=== PATIENT | female | born 1980 ===

== ENCOUNTER → 2019-06-14 | Outpatient (CLI) | payer SELFPAY | END | disposition home or self-care (01) | LOC: LABWHC1 13:16 | PROVIDERS: ATTEND Internal Medicine Endocrinology, Diabetes & Metabolism | DX: Z33.1 Pregnant state, incidental (principal) | CPT/HCPCS: 81025 ==

== ENCOUNTER 2020-03-25 10:00 | Emergency (ER) | payer OTHER ==
[2020-03-25 10:06] VITALS: RESP 18; TEMP 98.2
[2020-03-25] MEDS ORDERED: SODIUM CHLORIDE 0.9% 1,000 ML IV ONE (10:43)
--- NOTE | 2020-03-25 10:53 | ED ---
Female Urogenital HPI - General Chief complaint: Urogenital Stated complaint: abd pain/11 wks preg Time Seen by Provider: 03/25/20 10:23 Source: patient, family, RN notes reviewed, old records reviewed, Caregiver Mode of arrival: ambulatory Limitations: no limitations - History of Present Illness Initial comments: Patient is a 39-year-old female who presents emergency department today with chief complaint of acute urinary retention starting last night. She states that she is approximately 11 weeks and this would be her second and one previous miscarriage last year. 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 She reports that starting yesterday she felt that she was only able to urinate a few drops of urine. She denies any specific back pain or falls or trauma to her spine. She reports that she's been having normal stool. Patient denies any vaginal bleeding or discharge. She states that she has no numbness or tingling sensation to her legs. She complained of significant distention of her lower abdomen when she arrived. An ultrasound was completed and she had over 1 L of urine retained in the bladder. An i-STAT catheter was placed. After this she is feeling much better and improved her pain. - Related Data Allergies Allergy/AdvReac Type Severity Reaction Status Date / Time Iodinated Contrast Media Allergy Swelling Verified 03/25/20 10:06 shellfish derived [Shellfish] Allergy Swelling Verified 03/25/20 10:06 Review of Systems ROS Statement: Those systems with pertinent positive or pertinent negative responses have been documented in the HPI. ROS Other: All systems not noted in ROS Statement are negative. Past Medical History Past Medical History: Thyroid Disorder History of Any Multi-Drug Resistant Organisms: None Reported Additional Past Surgical History / Comment(s): cyst on neck removed Past Psychological History: No Psychological Hx Reported Smoking Status: Never smoker Past Alcohol Use History: None Reported Past Drug Use History: None Reported General Exam - General Exam Comments Initial Comments: Pleasant 39-year-old female. Alert and oriented 3. Limitations: no limitations General appearance: alert Head exam: Present: atraumatic Eye exam: Present: normal appearance ENT exam: Present: normal exam, mucous membranes moist Neck exam: Present: normal inspection. Absent: tenderness, meningismus, lymphadenopathy Respiratory exam: Present: normal lung sounds bilaterally. Absent: respiratory distress, wheezes, rales, rhonchi, stridor Cardiovascular Exam: Present: regular rate, normal rhythm, normal heart sounds. Absent: systolic murmur, diastolic murmur, rubs, gallop, clicks GI/Abdominal exam: Present: soft, tenderness (suprapubic), normal bowel sounds. Absent: distended, guarding, rebound, rigid External exam: Present: normal external exam, other (normal sensation to light touch over inner thigh and over perineum. No vaginal bleeding noted. ) Speculum exam: Present: normal speculum exam Extremities exam: Present: normal inspection, full ROM, normal capillary refill. Absent: tenderness, pedal edema, joint swelling, calf tenderness Back exam: Present: normal inspection Neurological exam: Present: alert, oriented X3, CN II-XII intact Psychiatric exam: Present: normal affect, normal mood Course Vital Signs 03/25/20 03/25/20 10:03 13:34 Temperature 98.2 F Pulse Rate 81 62 Respiratory 18 18 Rate Blood Pressure 140/85 106/68 O2 Sat by Pulse 98 99 Oximetry - Reevaluation(s) Reevaluation #1: 03/25/20 11:01 Approximately 700 mL of urine in the catheter at this time after Hurd catheter is placed. Medical Decision Making - Medical Decision Making 39-year-old female currently 11 weeks . The last menstrual period presented today with acute urinary retention. She is a Patient. Patient is A+ blood type. No vaginal bleeding. She complains some minor cramping. At this time patient's CBC and CMP are unremarkable. Patient's UA was normal. She did have this out Hurd catheter placed due to lower abdominal distention and had over 1 L of urine removed from the bladder. Afterward she felt immediate relief. Patient denies any other significant complaints. I discussed this with Dr. Kirkpatrick Patient has no medications or any saddle anesthesias or significant reason as to why Patient developed urinary retention at this time. We discussed the case with on-call urology Dr. Rodriguez on had no further input as well as Dr. Moise. He recommended Patient follow-up with urology to have Hurd catheter removed. At this time she is no vaginal bleeding or any concern for miscarriage. I discussed the Patient can follow-up with urology and gynecology. I discussed if the urinary catheter was not able to be removed out patiently that she could return tomorrow to emergency room to have fully catheter removed. - Lab Data Result diagrams: 03/25/20 10:35 03/25/20 10:35 Lab Results 03/25/20 03/25/20 03/25/20 Range/Units 10:35 10:35 10:35 WBC 6.9 (3.8-10.6) k/uL RBC 4.36 (3.80-5.40) m/uL Hgb 13.8 (11.4-16.0) gm/dL Hct 39.8 (34.0-46.0) % MCV 91.4 (80.0-100.0) fL MCH 31.7 (25.0-35.0) pg MCHC 34.7 (31.0-37.0) g/dL RDW 11.9 (11.5-15.5) % Plt Count 409 (150-450) k/uL Neutrophils % 67 % Lymphocytes % 24 % Monocytes % 6 % Eosinophils % 3 % Basophils % 0 % Neutrophils # 4.6 (1.3-7.7) k/uL Lymphocytes # 1.6 (1.0-4.8) k/uL Monocytes # 0.4 (0-1.0) k/uL Eosinophils # 0.2 (0-0.7) k/uL Basophils # 0.0 (0-0.2) k/uL PT 9.4 (9.0-12.0) sec INR 0.9 (<1.2) APTT 22.2 (22.0-30.0) sec Sodium (137-145) mmol/L Potassium (3.5-5.1) mmol/L Chloride (98-107) mmol/L Carbon Dioxide (22-30) mmol/L Anion Gap mmol/L BUN (7-17) mg/dL Creatinine (0.52-1.04) mg/dL Est GFR (CKD-EPI)AfAm (>60 ml/min/1.73 sqM) Est GFR (CKD-EPI)NonAf (>60 ml/min/1.73 sqM) Glucose (74-99) mg/dL Calcium (8.4-10.2) mg/dL Total Bilirubin (0.2-1.3) mg/dL AST (14-36) U/L ALT (4-34) U/L Alkaline Phosphatase (38-126) U/L Total Protein (6.3-8.2) g/dL Albumin (3.5-5.0) g/dL HCG, Quant mIU/mL Urine Color Light Yellow Urine Appearance Clear (Clear) Urine pH 5.5 (5.0-8.0) Ur Specific [place] 1.007 (1.001-1.035) Urine Protein Negative (Negative) Urine Glucose (UA) Negative (Negative) Urine Ketones Negative (Negative) Urine Blood Negative (Negative) Urine Nitrite Negative (Negative) Urine Bilirubin Negative (Negative) Urine Urobilinogen <2.0 (<2.0) mg/dL Ur Leukocyte Esterase Negative (Negative) Blood Type Blood Type Recheck Bld Type Recheck Status 03/25/20 03/25/20 Range/Units 10:35 10:35 WBC (3.8-10.6) k/uL RBC (3.80-5.40) m/uL Hgb (11.4-16.0) gm/dL Hct (34.0-46.0) % MCV (80.0-100.0) fL MCH (25.0-35.0) pg MCHC (31.0-37.0) g/dL RDW (11.5-15.5) % Plt Count (150-450) k/uL Neutrophils % % Lymphocytes % % Monocytes % % Eosinophils % % Basophils % % Neutrophils # (1.3-7.7) k/uL Lymphocytes # (1.0-4.8) k/uL Monocytes # (0-1.0) k/uL Eosinophils # (0-0.7) k/uL Basophils # (0-0.2) k/uL PT (9.0-12.0) sec INR (<1.2) APTT (22.0-30.0) sec Sodium 135 L (137-145) mmol/L Potassium 4.1 (3.5-5.1) mmol/L Chloride 101 (98-107) mmol/L Carbon Dioxide 21 L (22-30) mmol/L Anion Gap 13 mmol/L BUN 11 (7-17) mg/dL Creatinine 0.53 (0.52-1.04) mg/dL Est GFR (CKD-EPI)AfAm >90 (>60 ml/min/1.73 sqM) Est GFR (CKD-EPI)NonAf >90 (>60 ml/min/1.73 sqM) Glucose 96 (74-99) mg/dL Calcium 9.9 (8.4-10.2) mg/dL Total Bilirubin 0.4 (0.2-1.3) mg/dL AST 30 (14-36) U/L ALT 29 (4-34) U/L Alkaline Phosphatase 55 (38-126) U/L Total Protein 7.6 (6.3-8.2) g/dL Albumin 4.6 (3.5-5.0) g/dL HCG, Quant 916833.0 mIU/mL Urine Color Urine Appearance (Clear) Urine pH (5.0-8.0) Ur Specific [place] (1.001-1.035) Urine Protein (Negative) Urine Glucose (UA) (Negative) Urine Ketones (Negative) Urine Blood (Negative) Urine Nitrite (Negative) Urine Bilirubin (Negative) Urine Urobilinogen (<2.0) mg/dL Ur Leukocyte Esterase (Negative) Blood Type A Positive Blood Type Recheck No Previous Record Bld Type Recheck Status [facility] ONLY - Radiology Data Radiology results: report reviewed Ultrasound showed single live intrauterine which occasionally jump 12 weeks and 1 day by last menstrual period. Current ultrasound biometry smaller and frankly discordant 9 weeks 2 days. Correlate to accuracy of recall of last menstrual period. Fibroid uterus was noted. Largest fibroid is exophytic towards 6.7 cm. Right ovary could not be visualized. Corpus luteum in the left ovary. Complete survey is recommended 18-20 weeks. Heart rate was 1 61 bpm. Disposition Clinical Impression: Urinary retention, First trimester , Uterine fibroid Disposition: HOME SELF-CARE Condition: Good Instructions (If sedation given, give patient instructions): *Surgery [facility] - Hurd Catheter Instructions, Acute Urinary Retention in Women (ED) Additional Instructions: Patient showing an follow-up with urology and MACHINE OPERATIONS SUPERVISOR. If he were unable to make an appointment to have the Hurd catheter removed please, return tomorrow and can remove the catheter for you in ER. Is patient prescribed a controlled substance at d/c from ED?: No Referrals: None,Stated [Primary Care Provider] - 1-2 days Remy Hale MD [STAFF PHYSICIAN] - 1-2 days James Moise MD [STAFF PHYSICIAN] - 1-2 days Time of Disposition: 13:09
[2020-03-25 11:07] LABS: Appearance,Urine Clear (Clear); Basophils % (A) 0 %; Bilirubin,Urine Negative (Negative); Blood,Urine Negative (Negative); Color,Urine Light Yellow; Eosinophils # (A) 0.2 k/uL (0-0.7); Eosinophils % (A) 3 %; Glucose,Urine (UA) Negative (Negative); HCT 39.8 % (34.0-46.0); HGB 13.8 gm/dL (11.4-16.0); Ketones,Urine Negative (Negative); Leukocyte Esterase,Urine Negative (Negative); Lymphocytes # (A) 1.6 k/uL (1.0-4.8); Lymphocytes % (A) 24 %; MCH 31.7 pg (25.0-35.0); MCHC 34.7 g/dL (31.0-37.0); MCV 91.4 fL (80.0-100.0); Mean Platelet Volume 6.5; Monocytes # (A) 0.4 k/uL (0-1.0); Monocytes % (A) 6 %; Neutrophils # (A) 4.6 k/uL (1.3-7.7); Neutrophils % (A) 67 %; Nitrite,Urine Negative (Negative); PH, Urine 5.5 (5.0-8.0); Platelet Count 409 k/uL (150-450); Protein,Urine Negative (Negative); RBC 4.36 m/uL (3.80-5.40); RDW 11.9 % (11.5-15.5); Specific Gravity,Urine 1.007 (1.001-1.035); Urobilinogen,Urine <2.0 mg/dL (<2.0); WBC 6.9 k/uL (3.8-10.6)
[2020-03-25 11:09] LABS: ALT 29 U/L (4-34); AST 30 U/L (14-36); African American GFR (CKD) >90 (>60 ml/min/1.73 sqM); Albumin 4.6 g/dL (3.5-5.0); Alkaline Phosphatase 55 U/L (38-126); Anion Gap 13 mmol/L; Blood Urea Nitrogen 11 mg/dL (7-17); Calcium 9.9 mg/dL (8.4-10.2); Carbon Dioxide 21 mmol/L (22-30); Chloride 101 mmol/L (98-107); Glucose 96 mg/dL (74-99); Non-African American GFR(CKD) >90 (>60 ml/min/1.73 sqM); Potassium 4.1 mmol/L (3.5-5.1); Sodium 135 mmol/L (137-145); Total Bilirubin 0.4 mg/dL (0.2-1.3); Total Protein 7.6 g/dL (6.3-8.2)
[2020-03-25 11:15] LABS: INR 0.9 (<1.2); Partial Thromboplastin Time 22.2 sec (22.0-30.0); Prothrombin Time 9.4 sec (9.0-12.0)
--- NOTE | 2020-03-25 12:02 | US ---
EXAMINATION TYPE: Ultrasound OB <= 14 week fetus DATE OF EXAM: 03/25/2020 11:39 AM COMPARISON: NONE CLINICAL HISTORY: 39-year-old female pain. urine retention EXAM PERFORMED: Transabdominal (TA) TECHNIQUE: Multiple transabdominal sonographic images of the pelvis are obtained. FINDINGS: EXAM MEASUREMENTS: GESTATIONAL AGE / DATING Physician Established: Not yet established Dates by LMP: (12 weeks/1 days) EDC: 10/06/2020 Dates by First Scan: No previous this is first scan Dates by Current Scan for: ( 9 weeks/2 days) EDC: 10/26/2020 MATERNAL ANATOMY Uterus: 14.3 x 10.4 x 8.5 cm Right Ovary: Not visualized. Left Ovary: 3.3 x 2.9 x 3.3 cm Post CDS / Adnexa: wnl Presence of free fluid: no Presence of corpus luteal cyst: yes left ovary. Presence of subchorionic bleed: no GESTATION / SURVEY CRL: 2.6cm ( 9 weeks/2 days) Yolk Sac (normal less than 6mm): 3 mm Heart Rate: 161 bpm Rhythm: Normal IUP: Viable Date of LMP: 12/31/2019 Beta HcG (if available): Not available at this time Fibroids visualized anterior and posterior. Largest anterior towards the right 6.7 x 5.7 x 4.7 cm, m ostly subserosal and exophytic. IMPRESSION: 1. Single live intrauterine with estimated gestational age of 12 weeks 1 day by LMP. Curren t ultrasound biometry is smaller and frankly discordant (9 weeks 2 days). Correlate as to accuracy of recall of LMP. 2. Fibroid uterus. Largest fibroid is exophytic towards the right measuring up to 6.7 cm. 3. Right ovary could not be visualized. Corpus luteum within the left ovary. 4. Complete survey recommended at 18-20 weeks.
[2020-03-25 13:50] VITALS: BP 106/68; PULSE 62
== END 2020-03-25 13:51 | disposition home or self-care (01) ==
LOC: EC 10:00
DX: O34.11 Maternal care for benign tumor of corpus uteri, first trimester (principal); D25.9 Leiomyoma of uterus, unspecified; O99.89 Other specified diseases and conditions complicating pregnancy, childbirth and the puerperium; R33.9 Retention of urine, unspecified; Z3A.12 12 weeks gestation of pregnancy; Z91.048 Other nonmedicinal substance allergy status; Z91.013 Allergy to seafood
CPT/HCPCS: 36415; 51702; 76801; 80053; 81003; 84702; 85025; 85610; 85730; 86900; 86901; 96360; 96361; 99284

== ENCOUNTER 2020-05-29 12:50 | Emergency (ER) | payer OTHER ==
[2020-05-29 13:15] VITALS: BP 97/65; PULSE 88; RESP 16; TEMP 98.9
--- NOTE | 2020-05-29 14:14 | XR ---
Left foot HISTORY: Trauma and pain 3 views of the left foot There is transverse lucency through the proximal fifth metatarsal. No dislocation. No significant dis placement. IMPRESSION: Proximal fifth metatarsal fracture.
--- NOTE | 2020-05-29 14:51 | ED ---
General Adult HPI - General Chief complaint: Extremity Injury, Lower Stated complaint: Ankle injury Time Seen by Provider: 05/29/20 13:31 Source: patient, RN notes reviewed, old records reviewed Mode of arrival: wheelchair Limitations: no limitations - History of Present Illness Initial comments: 39-year-old female patient presents to ED for left foot pain. Patient reports that she was walking on the stairs when her ankle twisted and she stepped on her left foot had pain in the 5th metatarsal region. Patient is 18 weeks . She denies any abdominal pain. Denies falling to the ground. Denies any vaginal bleeding. 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 Systemic: Pt denies fatigue, fever/chills, rash. Pt denies weakness, night sweats, weight loss. Neuro: Pt denies headache, visual disturbances, syncope or pre-syncope. HEENT: Pt denies ocular discharge or irritation, otalgia, rhinorrhea, pharyngitis or notable lymphadenopathy. Cardiopulmonary: Pt denies chest pain, SOB, heart palpitations, dyspnea on exertion. Abdominal/GI: Pt denies abdominal pain, n/v/d. : Pt denies dysuria, burning w/ urination, frequency/urgency. Denies new onset urinary or bowel incontinence. Neuro: Pt denies new onset weakness, paresthesias. - Related Data Allergies Allergy/AdvReac Type Severity Reaction Status Date / Time Iodinated Contrast Media Allergy Swelling Verified 05/29/20 13:16 shellfish derived [Shellfish] Allergy Swelling Verified 05/29/20 13:16 Review of Systems ROS Statement: Those systems with pertinent positive or pertinent negative responses have been documented in the HPI. ROS Other: All systems not noted in ROS Statement are negative. Past Medical History Past Medical History: Thyroid Disorder History of Any Multi-Drug Resistant Organisms: None Reported Additional Past Surgical History / Comment(s): cyst on neck removed Past Psychological History: No Psychological Hx Reported Smoking Status: Never smoker Past Alcohol Use History: None Reported Past Drug Use History: None Reported General Exam - General Exam Comments Initial Comments: Constitutional: NAD, AOX3, Pt has pleasant affect. HEENT: NC/AT, trachea midline.External ears appear normal, without discharge. Mucous membranes moist. Eyes PERRLA, EOM intact. There is no scleral icterus. No pallor noted. Cardiopulmonary: RRR, no murmurs, rubs or gallops, no JVD noted. Lungs CTAB in anterior and posterior chopra. No peripheral edema. Abdominal exam: Abdomen soft and non-distended. Abdomen non-tender to palpation in all 4 quadrants. Neuro: CN II-XII grossly intact. No nuchal rigidity. No raccon eyes, no watkins sign, no hemotympanum. No cervical spinal tenderness. MSK: Left mill tender in fifth metatarsal region. No proximal tibia fibula tenderness or ankle tenderness. Posterior tibialis pulse +2. Patient placed in a posterior ankle splint. Neurovascular intact after splint placement. Full active ROM in upper and lower extremities, 5/5 stregnth. Limitations: no limitations Course Vital Signs 05/29/20 13:12 Temperature 98.9 F Pulse Rate 88 Respiratory 16 Rate Blood Pressure 97/65 O2 Sat by Pulse 99 Oximetry Medical Decision Making - Medical Decision Making 39-year-old female patient with a chief complaint left foot pain after twisting her ankle. Patient felt signs are stable, afebrile. Physical exam displayed tenderness to the fifth metatarsal region. Plain film displayed a fifth metatarsal fracture nondisplaced. Patient placed in posterior ankle splint. He'll be discharged with orthopedic follow-up and primary care follow-up. Case discussed with Dr. Corral. Disposition Clinical Impression: Fracture of 5th metatarsal, Foot fracture Disposition: HOME SELF-CARE Condition: Stable Instructions (If sedation given, give patient instructions): Foot Fracture in Adults (ED) Additional Instructions: Continue to wear splint. Use crutches, do not bear weight on left lower extremity. Follow-up with primary care provider and orthopedic consult tomorrow. Return to ER if condition worsens. Is patient prescribed a controlled substance at d/c from ED?: No Referrals: None,Stated [Primary Care Provider] - 1-2 days González Nguyễn DO [Medical Doctor] - 1-2 days
== END 2020-05-29 15:24 | disposition home or self-care (01) ==
LOC: EC 12:50
DX: O9A.212 Injury, poisoning and certain other consequences of external causes complicating pregnancy, second trimester (principal); S92.355A Nondisplaced fracture of fifth metatarsal bone, left foot, initial encounter for closed fracture; Z91.013 Allergy to seafood; Z91.041 Radiographic dye allergy status; X50.1XXA Overexertion from prolonged static or awkward postures, initial encounter; Z3A.18 18 weeks gestation of pregnancy
CPT/HCPCS: 29515; 99284

== ENCOUNTER 2020-09-28 07:55 | Outpatient (CLI) | payer OTHER ==
[2020-09-28 08:43] VITALS: BP 112/71; PULSE 73; RESP 15; TEMP 97
--- NOTE | 2020-09-28 09:43 | P.OBCN ---
History of Present Illness Consult date: 09/28/20 Reason for consult: other (Bleeding, history of complete placenta previa) History of present illness: This is a 39-year-old 2 para 0010 woman with an estimated due date of 10/24/2020 who presents at 36-2/7 weeks' gestation with an episode of bleeding at 6 AM this morning. Patient reports a 50 cent piece size clot and then subsequent light bleeding on the toilet tissue. She is having some irregular mild lower abdominal cramping. Her has been complicated by a known complete placenta previa. She is scheduled for primary low transverse section tomorrow at [facility]. She has been followed l ocally by Dr. Greenberg for this . She has not had any prior episodes of bleeding or contractions in this . She had a recent ultrasound where she reports growth of the baby has been appropriate. Upon initial evaluation in labor and delivery triage the patient is not actively bleeding. She has no blood on her period pad or perineum. Pelvic examination is deferred. Her abdomen is gravid, soft and nontender. On external monitoring she has category 1 heart tones. She has an irritable uterine pattern with no regular contractions noted. She is observed for 1 hour with no development of new vaginal bleeding or contractions. After discussion with the patient and her as well as the maternal medicine specialist on-call at [facility], the decision is made for her to be discharged from our facility to proceed immediately to [facility]. She is currently stable now with no bleeding and it is more appropriate for her to be at their facility for observation prior to her planned section tomorrow should her situation precipitously change. The patient and her are in agreement with this plan. They agreed to proceed directly there. They understand the small risk of increased bleeding or labor in this time interval however I believe that this is low and the benefits of self transfer outweigh the risks of discharge home at this time. Review of Systems All systems: negative Past Medical History Past Medical History: Thyroid Disorder Additional Past Medical History / Comment(s): Placenta previa History of Any Multi-Drug Resistant Organisms: None Reported Additional Past Surgical History / Comment(s): cyst on neck removed Smoking Status: Never smoker Medications and Allergies Home Medications Medication Instructions Recorded Confirmed Type Levothyroxine Sodium [Synthroid] 1 tab PO DAILY 09/28/20 09/28/20 History Allergies Allergy/AdvReac Type Severity Reaction Status Date / Time Iodinated Contrast Media Allergy Swelling Verified 09/28/20 08:04 shellfish derived [Shellfish] Allergy Swelling Verified 09/28/20 08:04 Exam Vital Signs Temp Pulse Resp BP Pulse Ox 09/28/20 08:40 97.0 F L 73 15 112/71 98 Intake and Output 09/27/20 09/28/20 09/28/20 23:59 06:59 14:59 Other: Weight 66 kg As above Assessment and Plan (1) 36 weeks gestation of Current Visit: Yes Status: Acute Code(s): Z3A.36 - 36 WEEKS GESTATION OF SNOMED Code(s): 63890781 (2) Placenta previa Current Visit: Yes Status: Acute Code(s): O44.00 - COMPLETE PLACENTA PREVIA NOS OR WITHOUT HEMOR, UNSP TRI SNOMED Code(s): 25978661 Plan: Per note above, discharge from labor and delivery triage for immediate self transport to [facility] for observation prior to planned section scheduled for 09/29/2020. Time with Patient: Greater than 30
== END 2020-09-28 09:49 | disposition home or self-care (01) ==
LOC: FBPOP 07:55
PROVIDERS: ATTEND Obstetrics & Gynecology
DX: O44.03 Complete placenta previa NOS or without hemorrhage, third trimester (principal); Z3A.36 36 weeks gestation of pregnancy
CPT/HCPCS: 59025; G0463; 99213

== ENCOUNTER → 2023-12-30 | Outpatient (CLI) | payer OTHER ==
--- NOTE | 2024-01-02 08:53 | MM ---
Reason for Exam: Screening (asymptomatic). Patient History: Menarche at age 14. First Full-Term at age 40. Late child-bearing (after 30). Premenopausal. Maternal grandmother had breast cancer, age 68. Risk Values: Mary Alice 5 year model risk: 1.0%. NCI Lifetime model risk: 12.0%. Tissue Density: The breast tissue is heterogeneously dense. This may lower the sensitivity of mammography. Findings: Analyzed By CAD. There is no suspicious group of microcalcifications or new suspicious mass in either breast. Overall Assessment: Benign, BI-RAD 2 Management: Screening Mammogram of both breasts in 1 year. . Patient should continue monthly self-breast exams. A clinical breast exam by your physician is recommended on an annual basis. This exam should not preclude additional follow-up of suspicious palpable abnormalities. Note on Mary Alice scores and lifetime risk: 1. A Mary Alice score greater than 3% is considered moderate risk. If this is the case, consider specialist referral to assess eligibility for a risk reducing agent. 2. If overall lifetime risk for the development of breast cancer is 20% or higher, the patient may qualify for future screening with alternating mammogram and breast MRI. Electronically signed and approved by: Yuniel Castro M.D. Radiologis
== END | disposition home or self-care (01) ==
LOC: RADMAMWWP 09:48
PROVIDERS: ATTEND Obstetrics & Gynecology
DX: Z12.31 Encounter for screening mammogram for malignant neoplasm of breast (principal); Z80.3 Family history of malignant neoplasm of breast
CPT/HCPCS: 77063; 77067

== ENCOUNTER → 2024-04-11 | Outpatient (CLI) | payer OTHER ==
[2024-04-11 15:02] LABS: T4, Free (Free Thyroxine) 1.62 ng/dL (0.80-1.80)
== END | disposition home or self-care (01) ==
LOC: LABWHC1 09:54
PROVIDERS: ATTEND Internal Medicine Endocrinology, Diabetes & Metabolism
DX: E03.8 Other specified hypothyroidism (principal)
CPT/HCPCS: 36415; 83540; 84439; 84443

== ENCOUNTER → 2024-04-20 | Outpatient (CLI) | payer OTHER ==
[2024-04-20 15:00] LABS: HCT 38.8 % (37.2-46.3); HGB 12.9 g/dL (12.0-15.0); MCH 30.6 pg (27.0-32.0); MCHC 33.2 g/dL (32.0-37.0); MCV 92.2 FL (80.0-97.0); Mean Platelet Volume 8.9 FL (9.5-12.2); NRBC Per 100 WBC 0 X 10*3/uL (0.00-0.01); Platelet Count 410 X 10*3/uL (140-440); RBC 4.21 X 10*6/uL (4.10-5.20); RDW 12.4 % (11.5-14.5); WBC 4.96 X 10*3/uL (4.50-10.00)
[2024-04-20 15:32] LABS: % Iron Saturation 15.78 (12.00-45.00); ALT 20 U/L (8-44); AST 23 U/L (13-35); Albumin 4.9 g/dL (3.8-4.9); Albumin/Globulin Ratio 1.96 Ratio (1.60-3.17); Alkaline Phosphatase 73 U/L (41-126); BUN/Creat Ratio 14.71 Ratio (12.00-20.00); Blood Urea Nitrogen 10.3 mg/dL (9.0-27.0); C Reactive Protein <0.30 mg/dL (0.00-0.80); Calcium 10.1 mg/dL (8.7-10.3); Carbon Dioxide 26.7 mmol/L (21.6-31.8); Chloride 104 mmol/L (96-109); Chol/HDL Ratio 4.34 Ratio; Globulin 2.5 g/dL (1.6-3.3); Glucose 86 mg/dL (70-110); Iron 62 UG/DL (50-170); LDL Cholesterol,Calculated 142.1 mg/dL (0.0-131.0); Potassium 4.8 mmol/L (3.5-5.5); Sodium 141 mmol/L (135-145); Total Bilirubin 0.4 mg/dL (0.3-1.2); Total Iron Binding Capacity 393 UG/DL (228-460); Total Protein 7.4 g/dL (6.2-8.2)
== END | disposition home or self-care (01) ==
LOC: LABWHC1 10:49
PROVIDERS: ATTEND Internal Medicine Endocrinology, Diabetes & Metabolism
DX: E03.9 Hypothyroidism, unspecified (principal); R53.83 Other fatigue
CPT/HCPCS: 36415; 80053; 80061; 82306; 82533; 82607; 83036; 83540; 83550; 85027; 86140